=== PATIENT | female | born 1985 | race African-American/Black ===

== ENCOUNTER 2017-06-21 10:53 | Emergency (ER) | payer SELFPAY ==
[2017-06-21 10:56] VITALS: PULSE 72; TEMP 98.2; BMI 29.9
--- NOTE | 2017-06-21 11:32 | PDOC ---
History of Present Illness - General Chief Complaint: Pain Stated Complaint: BACK, RT SIDE PAIN Time Seen by Provider: 06/21/17 11:31 - History of Present Illness Initial Comments: 06/21/17 12:46 Ms. Dinero is a 32 yo female with no significant past medical history who presents to the emergency department complaining of a 3 month history of right sided abdominal pain. She says the pain is worse with meals and varies in intensity from low grade to unbearable. At times she will go down on all 4 limbs with some relief of the pain. The patient denies chest pain, shortness of breath, headache and dizziness. Denies fever, chills, nausea, vomit, diarrhea and constipation. Denies dysuria, frequency, urgency and hematuria. Allergies: NKDA Past surgical history: Denies Past History - Past Medical History Allergies/Adverse Reactions: Allergies Allergy/AdvReac Type Severity Reaction Status Date / Time No Known Allergies Allergy Verified 06/21/17 10:56 Other medical history: denies - Suicide/Smoking/Psychosocial Hx Smoking History: Never smoked Information on smoking cessation initiated: No Hx Alcohol Use: No Drug/Substance Use Hx: No Substance Use Type: None Review of Systems - Review of Systems Comments:: 06/21/17 12:46 GENERAL/CONSTITUTIONAL: No fever or chills. No weakness. HEAD, EYES, EARS, NOSE AND THROAT: No change in vision. No ear pain or discharge. No sore throat. CARDIOVASCULAR: No chest pain or shortness of breath RESPIRATORY: No cough, wheezing, or hemoptysis. GASTROINTESTINAL: +sporadic RUQ pain relieved by getting "on all fours." No nausea, vomiting, diarrhea or constipation. GENITOURINARY: No dysuria, frequency, or change in urination. MUSCULOSKELETAL: No joint or muscle swelling or pain. No neck or back pain. SKIN: No rash NEUROLOGIC: No headache, vertigo, loss of consciousness, or change in strength/ sensation. ENDOCRINE: No increased thirst. No abnormal weight change HEMATOLOGIC/LYMPHATIC: No anemia, easy bleeding, or history of blood clots. ALLERGIC/IMMUNOLOGIC: No hives or skin allergy. *Physical Exam - Vital Signs Last Vital Signs Temp Pulse Resp BP Pulse Ox 98.2 F 72 18 133/90 99 06/21/17 10:54 06/21/17 10:54 06/21/17 10:54 06/21/17 10:54 06/21/17 10:54 - Physical Exam Comments: 06/21/17 12:46 GENERAL: Awake, alert, and fully oriented, in no acute distress HEAD: No signs of trauma, normocephalic, atraumatic EYES: PERRLA, EOMI, sclera anicteric, conjunctiva clear ENT: Auricles normal inspection, hearing grossly normal, nares patent, oropharynx clear without exudates. Moist mucosa NECK: Normal ROM, supple, no lymphadenopathy, JVD, or masses LUNGS: No distress, speaks full sentences, clear to auscultation bilaterally HEART: Regular rate and rhythm, normal S1 and S2, no murmurs, rubs or gallops, peripheral pulses normal and equal bilaterally. ABDOMEN: +Midline hernia palpated that is well known to patient and reducible. Soft, nontender, normoactive bowel sounds. No guarding, no rebound. EXTREMITIES: Normal inspection, Normal range of motion, no edema. No clubbing or cyanosis. NEUROLOGICAL: Cranial nerves II through XII grossly intact. Normal speech, normal gait, no focal sensorimotor deficits SKIN: Warm, Dry, normal turgor, no rashes or lesions noted. ED Treatment Course - LABORATORY CBC & Chemistry Diagram: 06/21/17 12:21 06/21/17 12:21 Medical Decision Making - Medical Decision Making 06/21/17 14:30 Patient presents with symptoms consistent with cholelithiasis, US confirms. No cholecystitis. No fever. No current ott sign. Discharging patient with instructions to follow-up outpatient with GI for management. *DC/Admit/Observation/Transfer Diagnosis at time of Disposition: Cholelithiasis Qualifiers: Cholelithiasis location: gallbladder Cholecystitis presence: without cholecystitis Biliary obstruction: without biliary obstruction Qualified Code(s) : K80.20 - Calculus of gallbladder without cholecystitis without obstruction; K80.20 - Calculus of gallbladder without cholecystitis without obstruction - Discharge Dispostion Disposition: HOME - Referrals Referrals: Juan Maynard DO [Staff Physician] - - Patient Instructions Printed Discharge Instructions: DI for Gallstones
--- NOTE | 2017-06-21 12:15 | PDOC ---
Attending Attestation - Resident Resident Name: Ghassan Pratt - ED Attending Attestation I have performed the following: I have examined & evaluated the patient, The case was reviewed & discussed with the resident, I agree w/resident's findings & plan, Exceptions are as noted - HPI HPI: 06/21/17 12:36 32y F no mphx presents with intermittent RUQ pain radiating to the back for several months, pain was intermittent perhaps 2x a week but has been more frequent recently, pain sometimes comes in the middle of the night (like last night) somtimes after eating, but pt notes it is not consistently. no associated fever/chilsl, vomiting, diarrhea. - Physicial Exam PE: 06/21/17 12:51 GENERAL: The patient is awake, alert, and fully oriented, Nontoxic - in no acute distress. HEAD: Normocephalic, atraumatic. EYES: extraocular movements intact, sclera anicteric, conjunctiva clear. ENT: Normal voice, Moist mucous membranes. NECK: Normal range of motion, supple LUNGS: Breath sounds equal, clear to auscultation bilaterally. No wheezes, no rhonchi, no rales. HEART: Regular rate and rhythm, normal S1 and S2 without murmur, rub or gallop. ABDOMEN: Soft, very minmal ruq tenderness, normoactive bowel sounds. No guarding, no rebound. . No CVA tenderness EXTREMITIES: Normal range of motion, no edema. No clubbing or cyanosis. No cords, erythema, or tenderness. NEUROLOGICAL: No facial assymetry, Normal speech, PSYCH: Normal mood, normal affect. SKIN: Warm, Dry, normal turgor, - Medical Decision Making 06/21/17 12:53 Differential for the patient's symptoms includes possible gall stones, consider possible kidney stonesn will obtain UA, hcg, lfts, cbc gb US pt declines pain meds will reassess 06/21/17 14:20 labs reviewed unremarakble US ntoed for multiple gall stones will have pt fu with GI and pmd dietary instructions given
[2017-06-21 12:54] LABS: BASOPHIL 0.7 % (0-2.0); EOSINOPHIL 3.9 % (0-4.5); MCHC 30.6 g/dl (32.0-36.0); MEAN CELL VOLUME 71.8 fl (80-96); MEAN PLT VOLUME 9.4 fl (7.5-11.1); NEUTROPHILS 52.7 % (42.8-82.8); PLATELET COUNT 373 K/MM3 (134-434); RDW 19.4 % (11.6-15.6); WHITE BLOOD COUNT 4.6 K/mm3 (4.0-10.0)
[2017-06-21 13:06] LABS: ALBUMIN 3.5 g/dl (3.4-5.0); ALK PHOS 65 U/L (45-117); ANION GAP 6 (8-16); BILIRUBIN,TOTAL 0.4 mg/dL (0.2-1.0); CALCIUM 8.9 mg/dL (8.5-10.1); CO2 28 mmol/L (21-32); CREATININE 0.6 mg/dL (0.55-1.02); GLUCOSE,RANDOM 82 mg/dL (74-106); SGOT/AST 8 U/L (15-37); SGPT/ALT 12 U/L (12-78); TOT PROT 7.3 g/dl (6.4-8.2)
[2017-06-21 14:22] LABS: URINE APPEARANCE CLEAR; URINE BILIRUBIN NEGATIVE (NEGATIVE); URINE BLOOD NEGATIVE (NEGATIVE); URINE COLOR YELLOW; URINE GLUCOSE (UA) NEGATIVE (NEGATIVE); URINE KETONE NEGATIVE (NEGATIVE); URINE LEUK ESTERASE NEGATIVE (NEGATIVE); URINE NITRITE NEGATIVE (NEGATIVE); URINE PROTEIN NEGATIVE (NEGATIVE); URINE UROBILINOGEN NEGATIVE mg/dL (0.2-1.0)
[2017-06-21 14:32] LABS: ANISOCYTOSIS 1+; HYPOCHROMIA 2+; TARGET CELLS FEW
[2017-06-21 14:33] LABS: OVALOCYTE 3+
[2017-06-21 15:05] VITALS: BP 127/78
== END 2017-06-21 15:00 | disposition home or self-care (01) ==
LOC: JER 10:53
DX: K80.20 Calculus of gallbladder without cholecystitis without obstruction (principal)
CPT/HCPCS: 36415; 76705-TC; 80053; 81003; 84703; 85025; 99282-25